=== PATIENT | female | born 1955 | race Caucasian/White ===

== ENCOUNTER → 2016-05-04 | Outpatient (CLI) | payer BC | LOC: LAB 15:11 | PROVIDERS: ATTEND Internal Medicine Cardiovascular Disease | DX: I45.89 Other specified conduction disorders (principal) | CPT/HCPCS: 36415; 82565; 84520 ==

== ENCOUNTER → 2016-05-06 | Outpatient (CLI) | payer BC | LOC: RAD 08:02 | PROVIDERS: ATTEND Internal Medicine Cardiovascular Disease | DX: I45.89 Other specified conduction disorders (principal) | CPT/HCPCS: 71275; Q9967 ==

== ENCOUNTER → 2016-05-25 | Outpatient (CLI) | payer BC ==
[2016-05-25 07:49] LABS: BASOPHILS % (AUTO) 1 % (0-2); EOSINOPHILS # (AUTO) 0.2 10^3uL; EOSINOPHILS % (AUTO) 3 % (0-4); LYMPHOCYTES # (AUTO) 1.5 X10^3; MEAN CORPUSCULAR HGB CONC 33.7 g/dL (31.0-37.0); MEAN CORPUSCULAR VOLUME 94 FL (80-100); MEAN PLATELET VOLUME 9.9 FL (6.0-9.5); MONOCYTES # (AUTO) 0.5 X10^3; MONOCYTES % (AUTO) 10 % (3-11); NEUTROPHILS % (AUTO) 58 % (51-67); PLATELET COUNT 169 10^3uL (150-450); WHITE BLOOD COUNT 5.16 10^3uL (4.0-11.0)
[2016-05-25 07:52] LABS: MEAN CORPUSCULAR HEMOGLOBIN 31.6 PG (26.0-34.0)
[2016-05-25 08:12] LABS: ANION GAP 12.8 MEQ/L (3-15); CALCULATED IONIZED CALCIUM 4.1 mg/dL (3.8-4.6); TOTAL PROTEIN 6.9 g/dL (6.4-8.5)
== END ==
LOC: LAB 07:40
PROVIDERS: ATTEND Internal Medicine Hematology & Oncology
DX: C50.812 Malignant neoplasm of overlapping sites of left female breast (principal)
CPT/HCPCS: 36415; 80053; 85025; 86300